=== PATIENT | female | born 1995 | race American Indian/Alaskan Native ===

== ENCOUNTER 2016-07-07 21:48 | Emergency (ER) | payer OTHER ==
[2016-07-08 00:44] VITALS: BP 144/92
--- NOTE | 2016-07-08 02:55 | Emergency Department Report ---
ED Chest Pain HPI - General Chief Complaint: Chest Pain Stated Complaint: CHEST PAIN Time Seen by Provider: 07/08/16 02:17 Source: patient Mode of arrival: Ambulatory Limitations: No Limitations - History of Present Illness Initial Comments: Patient comes in ER today with complaints of chest pain that started today. Patient states that 5 or 6 days ago she started having a sore throat, fever, cough that only lasted a few days. Since that time she thought she was feeling good until today she started getting some left-sided chest pain. Patient denies any cardiac history. Patient denies any vomiting, abdominal pain, diarrhea. She has not taken anything for the pain at home. Patient does state that it seems like it hurts more when she takes a deep breath. Severity scale (0 -10): 4 - Related Data Previous Rx's Medication Instructions Recorded Last Taken Type Levofloxacin [Levaquin TAB] 500 mg PO QDAY #10 tablet 07/08/16 Unknown Rx traMADol [Ultram] 50 mg PO Q4HR PRN #30 tablet 07/08/16 Unknown Rx Allergies Allergy/AdvReac Type Severity Reaction Status Date / Time No Known Allergies Allergy Unverified 07/07/16 22:09 SAWYER score - Sawyer Score Age > 65: (0) No Aspirin use within the Past 7 Days: (0) No 3 or more CAD Risk Factors: (0) No 2 or more Angina events in past 24 hrs: (0) No Known CAD with more than 50% Stenosis: (0) No Elevated Cardiac Markers: (0) No ST Deviation Greater than 0.5mm: (0) No SAWYER Score: 0 ED Review of Systems ROS: Stated complaint: CHEST PAIN Other details as noted in HPI Constitutional: denies: chills, fever Eyes: denies: eye pain, eye discharge, vision change ENT: denies: ear pain, throat pain Respiratory: denies: cough, shortness of breath, wheezing Cardiovascular: chest pain. denies: palpitations Endocrine: no symptoms reported Gastrointestinal: denies: abdominal pain, nausea, diarrhea Genitourinary: denies: urgency, dysuria, discharge Musculoskeletal: denies: back pain, joint swelling, arthralgia Skin: denies: rash, lesions Neurological: denies: headache, weakness, paresthesias Psychiatric: denies: anxiety, depression Hematological/Lymphatic: denies: easy bleeding, easy bruising ED Past Medical Hx - Past Medical History Previous Medical History?: No Hx Hypertension: No Hx CVA: No Hx Heart Attack/AMI: No Hx Congestive Heart Failure: No Hx Diabetes: No Hx Deep Vein Thrombosis: No Hx Pulmonary Embolism: No Hx GERD: No Hx Liver Disease: No Hx Renal Disease: No Hx of Cancer: No Hx Sickle Cell Disease: No Hx Arthritis: Yes Hx Headaches / Migraines: No Hx Seizures: No Hx Kidney Stones: No Hx Psychiatric Treatment: No Hx Asthma: No Hx COPD: No Hx Tuberculosis: No Hx Dementia: No Hx HIV: No - Surgical History Past Surgical History?: No Hx Coronary Stent: No Hx Open Heart Surgery: No Hx Pacemaker: No Hx Internal Defibrillator: No Hx Cholecystectomy: No Hx Appendectomy: No Hx Breast Surgery: No - Social History Smoking Status: Never Smoker Substance Use Type: None - Medications Home Medications: Home Medications Medication Instructions Recorded Confirmed Last Taken Type Levofloxacin [Levaquin TAB] 500 mg PO QDAY #10 tablet 07/08/16 Unknown Rx traMADol [Ultram] 50 mg PO Q4HR PRN #30 tablet 07/08/16 Unknown Rx ED Physical Exam - General Limitations: No Limitations General appearance: alert, in no apparent distress - Head Head exam: Present: atraumatic, normocephalic - Eye Eye exam: Present: normal appearance - ENT ENT exam: Present: normal exam, normal orophraynx, mucous membranes moist, TM's normal bilaterally, normal external ear exam - Neck Neck exam: Present: normal inspection, full ROM. Absent: tenderness, lymphadenopathy - Respiratory Respiratory exam: Present: normal lung sounds bilaterally, rales (left lower lobe). Absent: respiratory distress, wheezes, rhonchi, chest wall tenderness, accessory muscle use, decreased breath sounds - Cardiovascular Cardiovascular Exam: Present: regular rate, normal rhythm. Absent: systolic murmur, diastolic murmur, rubs, gallop - GI/Abdominal GI/Abdominal exam: Present: soft, normal bowel sounds. Absent: distended, tenderness, guarding, rebound, rigid - Extremities Exam Extremities exam: Present: normal inspection - Back Exam Back exam: Present: normal inspection - Neurological Exam Neurological exam: Present: alert, oriented X3 - Psychiatric Psychiatric exam: Present: normal affect, normal mood - Skin Skin exam: Present: warm, dry, intact, normal color. Absent: rash ED Course Vital Signs 07/07/16 07/08/16 22:03 00:43 Temperature 99.0 F Pulse Rate 104 H 91 H Respiratory 18 18 Rate Blood Pressure 125/86 Blood Pressure 144/92 [Right] O2 Sat by Pulse 98 99 Oximetry ED Medical Decision Making - EKG Data -: EKG Interpreted by Me EKG shows normal: sinus rhythm Rate: normal (98 bpm) - EKG Data Interpretation: no acute changes - Radiology Data Radiology results: image reviewed Small left lower lobe haziness concerning for early infiltrate. - Medical Decision Making Patient is nontoxic and hemodynamically stable. Breath sounds on left lower lobe concerning for pneumonia. Patient has had a recent bout of fever, sore throat, upper respiratory infection symptoms that I believe may have turned into a pneumonia. I will start patient on some antibiotics accordingly as well as prescribe her some medication for discomfort as needed. Patient is stable for discharge and is agreement with treatment plan. Critical care attestation.: If time is entered above; I have spent that time in minutes in the direct care of this critically ill patient, excluding procedure time. ED Disposition Clinical Impression: Chest pain, Left lower lobe pneumonia Disposition: DISCHARGED TO HOME OR SELFCARE Is pt being admited?: No Does the pt Need Aspirin: No Condition: Good Instructions: Chest Pain (ED), Bacterial Pneumonia (ED) Prescriptions: Levofloxacin [Levaquin TAB] 500 mg PO QDAY #10 tablet traMADol [Ultram] 50 mg PO Q4HR PRN #30 tablet PRN Reason: Pain Referrals: PRIMARY CARE, [Primary Care Provider] - 3-5 Days Forms: Work/School Release Form(ED) Time of Disposition: 02:57
--- NOTE | 2016-07-08 09:30 | XRay Report ---
CHEST TWO VIEWS: 07/07/16 21:48:00 CLINICAL: Chest pain. COMPARISON: None FINDINGS: Normal heart and pulmonary vasculature. The lungs are normally expanded and clear.The bones and soft tissues are unremarkable. IMPRESSION: Normal chest.
== END 2016-07-08 03:04 | disposition home or self-care (01) ==
LOC: ED 21:48
DX: R07.9 Chest pain, unspecified (principal); J18.1 Lobar pneumonia, unspecified organism; M19.90 Unspecified osteoarthritis, unspecified site
CPT/HCPCS: 71020; 93005; 93010

== ENCOUNTER 2016-07-17 19:30 | Emergency (ER) | payer OTHER ==
[2016-07-17] MEDS ORDERED: NACL 0.9% 1000 ML 1,000 ML IV ONE (20:11)
--- NOTE | 2016-07-17 20:33 | XRay Report ---
FINAL REPORT EXAM: XR CHEST ROUTINE 2V HISTORY: shortness of breath TECHNIQUE: Two view chest PA and lateral PRIORS: None. FINDINGS: Cardiac and mediastinal contours are unremarkable. No focal pulmonary infiltrate is identified. No pleural fluid collection seen. Pulmonary vasculature is unremarkable. IMPRESSION: Negative two-view chest
[2016-07-17] MEDS ORDERED: TYLENOL PO ONE (20:35)
[2016-07-17 20:37] VITALS: BP 130/82
--- NOTE | 2016-07-17 20:39 | Emergency Department Report ---
ED Fever HPI - General Chief Complaint: Upper Respiratory Infection Stated Complaint: COLD SX Time Seen by Provider: 07/17/16 20:11 - History of Present Illness Initial Comments: 21-year-old female with no past medical history presenting today because of cough, sore throat and fever. She has been having these symptoms for the last approximately 7-10 days. She was diagnosed with pneumonia and started on the levofloxacin which she is still taking. He has been having fevers and chills but has not been taking any antipyretics. Sits up the cough is productive of sputum. ED Review of Systems ROS: Stated complaint: COLD SX Other details as noted in HPI Comment: All other systems reviewed and negative Constitutional: chills, fever Respiratory: cough Cardiovascular: chest pain (chest pain couple days ago, none currently) Gastrointestinal: denies: vomiting Skin: denies: rash Neurological: denies: headache Psychiatric: denies: as per HPI ED Past Medical Hx - Past Medical History Previous Medical History?: No Hx Hypertension: No Hx CVA: No Hx Heart Attack/AMI: No Hx Congestive Heart Failure: No Hx Diabetes: No Hx Deep Vein Thrombosis: No Hx Pulmonary Embolism: No Hx GERD: No Hx Liver Disease: No Hx Renal Disease: No Hx Sickle Cell Disease: No Hx Arthritis: No Hx Headaches / Migraines: No Hx Seizures: No Hx Kidney Stones: No Hx Psychiatric Treatment: No Hx Asthma: No Hx COPD: No Hx Tuberculosis: No Hx Dementia: No Hx HIV: No - Surgical History Past Surgical History?: No Hx Coronary Stent: No Hx Open Heart Surgery: No Hx Pacemaker: No Hx Internal Defibrillator: No Hx Cholecystectomy: No Hx Appendectomy: No Hx Breast Surgery: No - Social History Smoking Status: Never Smoker - Medications Home Medications: Home Medications Medication Instructions Recorded Confirmed Last Taken Type Levofloxacin [Levaquin TAB] 500 mg PO QDAY #10 tablet 07/08/16 Unknown Rx traMADol [Ultram] 50 mg PO Q4HR PRN #30 tablet 07/08/16 Unknown Rx Acetaminophen [Tylenol] 650 mg PO Q6HR PRN #20 tablet 07/17/16 Unknown Rx Ibuprofen [Motrin] 600 mg PO Q8H PRN #12 tablet 07/17/16 Unknown Rx ED Physical Exam - General Limitations: No Limitations General appearance: alert, in no apparent distress - Head Head exam: Present: atraumatic - ENT ENT exam: Present: normal exam - Respiratory Respiratory exam: Present: normal lung sounds bilaterally. Absent: respiratory distress - Cardiovascular Cardiovascular Exam: Present: normal rhythm, tachycardia - GI/Abdominal GI/Abdominal exam: Present: soft. Absent: distended, tenderness - Neurological Exam Neurological exam: Present: alert, oriented X3 ED Course Vital Signs 07/17/16 07/17/16 19:40 20:37 Temperature 99.7 F H 100.2 F H Pulse Rate 140 H 126 H Respiratory 18 16 Rate Blood Pressure 120/90 Blood Pressure 130/82 [Left] O2 Sat by Pulse 100 98 Oximetry - Reevaluation(s) Reevaluation #1: 07/17/16 22:06 HR improved to 110, received approximately 300 cc of ns so far, explained results to patient and family; will finish ivf and reevaluate hr Reevaluation #2: 07/17/16 23:46 HR improved to 95, saturating 99% on RA, patient appears clinically stable, will discharge home, is complaining of pain with eating, on exam had small amount of tonsillar exudate no palatal petichae, no uvular deviation, will give dose of decadron for symptomatic relief. Patient is already finishing course of an antibiotic. ED Medical Decision Making - Lab Data Result diagrams: 07/17/16 20:18 07/17/16 20:18 - Medical Decision Making IV, labs, ekg, IVF, tylenol, cxr labs and ivf due to patient being tachycardic, suspect fever is higher than that document as she feels warm and may be the source of her tachycardia, as she had cp before will do a troponin to screen for myocarditis; although unlikely, tachycardia is currently out of proportion to fever. ekg shows sinus tachycardia at a rate of [address]-t changes, normal axis cxr unremarkable labs unremarkable Critical care attestation.: If time is entered above; I have spent that time in minutes in the direct care of this critically ill patient, excluding procedure time. ED Disposition Clinical Impression: Viral infection Disposition: DISCHARGED TO HOME OR SELFCARE Is pt being admited?: No Does the pt Need Aspirin: No Condition: Stable Instructions: Viral Syndrome (ED) Additional Instructions: Please follow up with the primary care physician in the next 3-5 days. Return to the ER if your symptoms worsen or you develop new symptoms. Drink plenty of fluids and take tylenol/montrin for fever. Finish your course of antibiotics. Prescriptions: Acetaminophen [Tylenol] 650 mg PO Q6HR PRN #20 tablet PRN Reason: Pain Ibuprofen [Motrin] 600 mg PO Q8H PRN #12 tablet PRN Reason: Pain Referrals: PRIMARY CARE, [Primary Care Provider] - 3-5 Days Time of Disposition: 23:49
[2016-07-17 20:40] LABS: Basophils % (Auto) 0.3 % (0.0-1.8); Eosinophils % (Auto) 0.9 % (0.0-4.3); Hematocrit 38.1 % (30.3-42.9); Hemoglobin 12.7 gm/dl (10.1-14.3); Mean Corpuscular HGB Conc 33 % (30-34); Mean Corpuscular Hemoglobin 27 pg (28-32); Mean Corpuscular Volume 81 fl (79-97); Platelet Count 372 K/mm3 (140-440); Red Blood Count 4.68 M/mm3 (3.65-5.03); Red Cell Distribution Width 13.8 % (13.2-15.2); White Blood Count 10.2 K/mm3 (4.5-11.0)
[2016-07-17 20:53] LABS: Anion Gap 20 mmol/L; Blood Urea Nitrogen 8 mg/dL (7-17); Calcium 9.5 mg/dL (8.4-10.2); Carbon Dioxide 23 mmol/L (22-30); Chloride 95.6 mmol/L (98-107); Glucose 86 mg/dL (65-100); Sodium 135 mmol/L (137-145)
[2016-07-17] MEDS ORDERED: MOTRIN PO ONE (20:56)
[2016-07-17] MEDS ORDERED: DECADRON PO ONE (23:45)
== END 2016-07-18 00:04 | disposition home or self-care (01) ==
LOC: ED 19:30
DX: B34.9 Viral infection, unspecified (principal)
CPT/HCPCS: 36415; 71020; 80048; 82140; 84484; 84703; 85025; 87040; 93005; 93010; 96360; 96361; 99284; J7030; J8540

== ENCOUNTER 2016-07-19 00:50 | Emergency (ER) | payer OTHER ==
[2016-07-19] MEDS ORDERED: XYLOCAINE 1% MPF 5 mL INFILTRATI ONE (07:27)
[2016-07-19] MEDS ORDERED: ROCEPHIN IM ONE (07:27)
--- NOTE | 2016-07-19 07:32 | Emergency Department Report ---
ED ENT HPI - General Chief complaint: Sore Throat Stated complaint: SORE THROAT/COUGH Time Seen by Provider: 07/19/16 07:18 Source: patient Mode of arrival: Ambulatory Limitations: No Limitations - History of Present Illness MD complaint: sore throat -: Gradual Location: R ear, L ear, throat Severity scale (0 -10): 5 Quality: burning, aching - Related Data Previous Rx's Medication Instructions Recorded Last Taken Type Levofloxacin [Levaquin TAB] 500 mg PO QDAY #10 tablet 07/08/16 Unknown Rx traMADol [Ultram] 50 mg PO Q4HR PRN #30 tablet 07/08/16 Unknown Rx Acetaminophen [Tylenol] 650 mg PO Q6HR PRN #20 tablet 07/17/16 Unknown Rx Ibuprofen [Motrin] 600 mg PO Q8H PRN #12 tablet 07/17/16 Unknown Rx Amoxicillin [Amoxicillin TAB] 875 mg PO BID #20 tablet 07/19/16 Unknown Rx methylPREDNISolone [Medrol] 4 mg PO QAM #1 tab.ds.pk 07/19/16 Unknown Rx Allergies Allergy/AdvReac Type Severity Reaction Status Date / Time No Known Allergies Allergy Unverified 07/07/16 22:09 ED Dental HPI - General Chief complaint: Sore Throat Stated complaint: SORE THROAT/COUGH Time Seen by Provider: 07/19/16 07:18 Source: patient Mode of arrival: Ambulatory Limitations: No Limitations - History of Present Illness MD complaint: tooth pain, sore throat -: Gradual, days(s) Severity: moderate Quality: burning, aching Worsens with: swallowing, hot/cold liquids Context- Dental: history of dental caries, poor dental care - Related Data Previous Rx's Medication Instructions Recorded Last Taken Type Levofloxacin [Levaquin TAB] 500 mg PO QDAY #10 tablet 07/08/16 Unknown Rx traMADol [Ultram] 50 mg PO Q4HR PRN #30 tablet 07/08/16 Unknown Rx Acetaminophen [Tylenol] 650 mg PO Q6HR PRN #20 tablet 07/17/16 Unknown Rx Ibuprofen [Motrin] 600 mg PO Q8H PRN #12 tablet 07/17/16 Unknown Rx Amoxicillin [Amoxicillin TAB] 875 mg PO BID #20 tablet 07/19/16 Unknown Rx methylPREDNISolone [Medrol] 4 mg PO QAM #1 tab.ds.pk 07/19/16 Unknown Rx Allergies Allergy/AdvReac Type Severity Reaction Status Date / Time No Known Allergies Allergy Unverified 07/07/16 22:09 ED Review of Systems ROS: Stated complaint: SORE THROAT/COUGH Other details as noted in HPI Constitutional: fever, malaise. denies: chills Eyes: denies: eye pain, eye discharge, vision change ENT: ear pain, throat pain Respiratory: denies: cough, shortness of breath, wheezing Cardiovascular: denies: chest pain, palpitations Endocrine: no symptoms reported Gastrointestinal: denies: abdominal pain, nausea, diarrhea Genitourinary: denies: urgency, dysuria, discharge Musculoskeletal: denies: back pain, joint swelling, arthralgia Skin: denies: rash, lesions Neurological: denies: headache, weakness, paresthesias Psychiatric: denies: anxiety, depression Hematological/Lymphatic: denies: easy bleeding, easy bruising ED Past Medical Hx - Past Medical History Previous Medical History?: No Hx Hypertension: No Hx CVA: No Hx Heart Attack/AMI: No Hx Congestive Heart Failure: No Hx Diabetes: No Hx Deep Vein Thrombosis: No Hx Pulmonary Embolism: No Hx GERD: No Hx Liver Disease: No Hx Renal Disease: No Hx Sickle Cell Disease: No Hx Arthritis: No Hx Headaches / Migraines: No Hx Seizures: No Hx Kidney Stones: No Hx Psychiatric Treatment: No Hx Asthma: No Hx COPD: No Hx Tuberculosis: No Hx Dementia: No Hx HIV: No - Surgical History Hx Coronary Stent: No Hx Open Heart Surgery: No Hx Pacemaker: No Hx Internal Defibrillator: No Hx Cholecystectomy: No Hx Appendectomy: No Hx Breast Surgery: No - Social History Smoking Status: Never Smoker - Medications Home Medications: Home Medications Medication Instructions Recorded Confirmed Last Taken Type Levofloxacin [Levaquin TAB] 500 mg PO QDAY #10 tablet 07/08/16 Unknown Rx traMADol [Ultram] 50 mg PO Q4HR PRN #30 tablet 07/08/16 Unknown Rx Acetaminophen [Tylenol] 650 mg PO Q6HR PRN #20 tablet 07/17/16 Unknown Rx Ibuprofen [Motrin] 600 mg PO Q8H PRN #12 tablet 07/17/16 Unknown Rx Amoxicillin [Amoxicillin TAB] 875 mg PO BID #20 tablet 07/19/16 Unknown Rx methylPREDNISolone [Medrol] 4 mg PO QAM #1 tab.ds.pk 07/19/16 Unknown Rx ED Physical Exam - General Limitations: No Limitations General appearance: alert, in no apparent distress - Head Head exam: Present: atraumatic, normocephalic - Eye Eye exam: Present: normal appearance, PERRL, EOMI - ENT ENT exam: Present: mucous membranes moist - Expanded ENT Exam Expanded Throat exam: Positive: tonsillar erythema, tonsillomegaly, tonsillar exudate. Negative: R peritonsillar mass, L peritonsillar mass - Neck Neck exam: Present: normal inspection, lymphadenopathy - Respiratory Respiratory exam: Present: normal lung sounds bilaterally. Absent: respiratory distress - Cardiovascular Cardiovascular Exam: Present: regular rate, normal rhythm. Absent: systolic murmur, diastolic murmur, rubs, gallop - GI/Abdominal GI/Abdominal exam: Present: soft, normal bowel sounds - Extremities Exam Extremities exam: Present: normal inspection - Back Exam Back exam: Present: normal inspection - Neurological Exam Neurological exam: Present: alert, oriented X3 - Psychiatric Psychiatric exam: Present: normal affect, normal mood - Skin Skin exam: Present: warm, dry, intact, normal color. Absent: rash ED Course Vital Signs 07/19/16 07/19/16 02:38 07:43 Temperature 99.2 F Pulse Rate 103 H 91 H Respiratory 16 Rate Blood Pressure 126/89 Blood Pressure 121/84 [Right] O2 Sat by Pulse 100 100 Oximetry Critical care attestation.: If time is entered above; I have spent that time in minutes in the direct care of this critically ill patient, excluding procedure time. ED Disposition Clinical Impression: Tonsillitis Disposition: DISCHARGED TO HOME OR SELFCARE Is pt being admited?: No Condition: Stable Instructions: Tonsillitis (ED) Prescriptions: Amoxicillin [Amoxicillin TAB] 875 mg PO BID #20 tablet methylPREDNISolone [Medrol] 4 mg PO QAM #1 tab.ds.pk Referrals: PRIMARY CARE, [Primary Care Provider] - 3-5 Days ALLEN KEN MD [Staff Physician] - 3-5 Days Forms: Work/School Release Form(ED)
[2016-07-19 07:44] VITALS: BP 121/84
== END 2016-07-19 07:43 | disposition home or self-care (01) ==
LOC: ED 00:50
DX: J03.90 Acute tonsillitis, unspecified (principal)
CPT/HCPCS: 87116; 87430; 96372; 99282; J0696